=== PATIENT | female | born 1975 | race Caucasian/White ===

== ENCOUNTER → 2016-06-24 | Outpatient (CLI) | payer MEDICAID ==
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
== END ==
LOC: CIMAGING 14:26
PROVIDERS: ATTEND Family Medicine
DX: M79.641 Pain in right hand (principal); M25.531 Pain in right wrist
CPT/HCPCS: 73130-PO

== ENCOUNTER → 2016-07-29 | Outpatient (CLI) | payer MEDICAID | LOC: CIMAGING 12:07 | PROVIDERS: ATTEND Family Medicine | DX: S62.396A Other fracture of fifth metacarpal bone, right hand, initial encounter for closed fracture (principal) | CPT/HCPCS: 73110-PO; 73120-PO ==

== ENCOUNTER 2016-08-25 21:18 | Emergency (ER) | payer MEDICAID ==
[2016-08-25 21:29] VITALS: O2SAT 96
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
[2016-08-25] MEDS ORDERED: IBUPROFEN 200 MG TAB PO ONE (21:43)
[2016-08-25] MEDS ORDERED: ACETAMINOPHEN 500 MG TAB PO ONE (21:47)
[2016-08-25 23:10] VITALS: BP 125/101; PULSE 127; RESP 16; TEMP 98.8
== END 2016-08-25 23:10 | disposition home or self-care (01) ==
DX: S62.316A Displaced fracture of base of fifth metacarpal bone, right hand, initial encounter for closed fracture (principal); W23.0XXA Caught, crushed, jammed, or pinched between moving objects, initial encounter